=== PATIENT | female | born 1990 | race Caucasian/White ===

== ENCOUNTER 2019-02-08 17:21 | Emergency (ER) | payer MEDICAID ==
[~2019-02-08] VITALS: Ht 167.6 cm; Wt 78.0 kg
[2019-02-08 17:29] VITALS: Ht 167.6 cm; Wt 78.0 kg
[2019-02-08 20:13] VITALS: BP 130/83
== END 2019-02-08 20:13 | disposition home or self-care (01) ==
LOC: ED 17:21
DX: M94.0 Chondrocostal junction syndrome [Tietze] (principal); Z90.49 Acquired absence of other specified parts of digestive tract

== ENCOUNTER 2019-09-15 16:15 | Emergency (ER) | payer SELFPAY ==
[~2019-09-15] VITALS: Ht 162.6 cm; Wt 80.3 kg
[2019-09-15 16:41] VITALS: Ht 162.6 cm; Wt 80.3 kg
[2019-09-15 18:33] LABS: BASOPHIL % 0.3 % (0-2); PLATELET COUNT 273 x10^3mcL (130-400); RED CELL DISTRIBUTION WIDTH 13.7 % (11.5-14.5)
[2019-09-15 18:41] LABS: CALCIUM 9.4 mg/dL (8.5-10.1); CARBON DIOXIDE 30.1 mmol/L (21-32); CHLORIDE SERUM 101 mmol/L (98-107); CREATININE SERUM 0.7 mg/dL (0.6-1.0); GFR1 > 60 mL/min; GLUCOSE SERUM 89 mg/dL (74-106); SODIUM SERUM 137 mmol/L (136-145)
[2019-09-15 18:45] LABS: ALBUMIN 3.8 g/dL (3.4-5.0); ALKALINE PHOSPHATASE 80 U/L (46-116); ALT/SGPT 47 U/L (14-59); AST/SGOT 26 U/L (15-37); BILIRUBIN TOTAL 0.3 mg/dL (0.20-1.00); TOTAL PROTEIN, SERUM 8.1 g/dL (6.4-8.2)
[2019-09-15 20:50] VITALS: BP 110/71
== END 2019-09-15 20:49 | disposition home or self-care (01) ==
LOC: ED 16:15
PROVIDERS: Emergency Medicine
DX: K62.5 Hemorrhage of anus and rectum (principal); Z90.49 Acquired absence of other specified parts of digestive tract
CPT/HCPCS: 36415

== ENCOUNTER 2019-12-13 15:01 | Emergency (ER) | payer SELFPAY ==
[~2019-12-13] VITALS: Ht 167.6 cm; Wt 65.8 kg
[2019-12-13 15:27] VITALS: Ht 167.6 cm; Wt 65.8 kg
[2019-12-13 17:40] VITALS: BP 123/85
== END 2019-12-13 17:40 | disposition home or self-care (01) ==
LOC: ED 15:01
DX: J18.9 Pneumonia, unspecified organism (principal); Z20.828 Contact with and (suspected) exposure to other viral communicable diseases; Z90.49 Acquired absence of other specified parts of digestive tract
CPT/HCPCS: 87804; Q0092; U0002